=== PATIENT | female | born 1950 | race African-American/Black ===

== ENCOUNTER 2019-10-13 21:16 | Inpatient (IN) | payer OTHER, BC ==
[2019-10-13] MEDS ORDERED: LACTATED RINGERS SOLUTION 1000 ML INFUS.BAG IV ONE (22:03)
[2019-10-13] MEDS ORDERED: MAG HYDROX/AL HYDROX/SIMETH 30 ML UNIT-DOSE CUP PO ONE (22:03)
[2019-10-13] MEDS ORDERED: ONDANSETRON *ODT* 4 MG TABLET SL ONE (22:03)
[2019-10-13] MEDS ORDERED: METOCLOPRAMIDE HCL INJECTION 10 MG/2 ML VIAL IVPUSH ONE (22:03)
--- NOTE | 2019-10-13 22:08 | PDOC ---
History of Present Illness - General Chief Complaint: Vomiting/Diarrhea Stated Complaint: VOMITTING Time Seen by Provider: 10/13/19 21:50 History Source: Patient - History of Present Illness Initial Comments: 10/13/19 23:03 Ms. Mckinnon is a 69F w/hx HTN, HLD p/w acute onset n/v/d one hour after eating dinner at 1730. She reports one hour after dinner noting nausea, 6x nbnb vomiting, 6x non-bloody diarrhea, and nausea. She reports mild chest pain that began after vomiting, non-radiating, Past History - Past Medical History Allergies/Adverse Reactions: Allergies Allergy/AdvReac Type Severity Reaction Status Date / Time No Known Allergies Allergy Verified 10/13/19 21:21 COPD: No HTN: Yes - Psycho Social/Smoking Cessation Hx Smoking History: Never smoked *Physical Exam - Vital Signs Last Vital Signs Temp Pulse Resp BP Pulse Ox 97.4 F L 97 H 18 151/71 97 10/13/19 21:16 10/13/19 21:16 10/13/19 21:16 10/13/19 21:16 10/13/19 21:16 ED Treatment Course - LABORATORY CBC & Chemistry Diagram: 10/13/19 22:20 10/13/19 22:20
[2019-10-13] MEDS ORDERED: METOCLOPRAMIDE HCL INJECTION 10 MG/2 ML VIAL ONE (22:27)
[2019-10-13] MEDS ORDERED: MAG HYDROX/AL HYDROX/SIMETH 30 ML UNIT-DOSE CUP ONE (22:27)
[2019-10-13 22:29] LABS: BASO % 0.2 % (0-2.0); EOS % 0.3 % (0-4.5); HEMATOCRIT 40.7 % (32.4-45.2); HEMOGLOBIN 13.6 GM/dL (10.7-15.3); LYMPH % 6.4 % (8-40); MCH 28.9 pg (25.7-33.7); MCHC 33.3 g/dl (32.0-36.0); MEAN CELL VOLUME 86.5 fl (80-96); MEAN PLT VOLUME 9.4 fl (7.5-11.1); MONO % 5.9 % (3.8-10.2); NEUT % 87.2 % (42.8-82.8); PLATELET COUNT 329 K/MM3 (134-434); RDW 13.5 % (11.6-15.6); WHITE BLOOD COUNT 20.9 K/mm3 (4.0-10.0)
[2019-10-13 23:01] LABS: BLOOD UREA NITROGEN 26.1 mg/dL (7-18); CALCIUM 9.8 mg/dL (8.5-10.1); CREATININE 1.2 mg/dL (0.55-1.3); PLATELET ESTIMATE NORMAL; POTASSIUM 3.6 mmol/L (3.5-5.1); TOT PROT 7.4 g/dl (6.4-8.2)
--- NOTE | 2019-10-13 23:03 | PDOC ---
*Physical Exam - Vital Signs Last Vital Signs Temp Pulse Resp BP Pulse Ox 97.4 F L 97 H 18 151/71 97 10/13/19 21:16 10/13/19 21:16 10/13/19 21:16 10/13/19 21:16 10/13/19 21:16 ED Treatment Course - LABORATORY CBC & Chemistry Diagram: 10/13/19 22:20 10/13/19 22:20 - ADDITIONAL ORDERS Additional order review: 10/13/19 22:20 RBC 4.70 MCV 86.5 MCHC 33.3 RDW 13.5 MPV 9.4 Neutrophils % 87.2 H D Lymphocytes % 6.4 L D Monocytes % 5.9 D Eosinophils % 0.3 D Basophils % 0.2 - Medications Given in the ED: ED Medications Discontinued Medications Generic Name Dose Route Start Last Admin Trade Name Santosq PRN Reason Stop Dose Admin Al Hydroxide/Mg Hydroxide 30 ml 10/13/19 22:03 10/13/19 22:31 Mylanta Oral Suspension - PO 10/13/19 22:04 30 ml ONCE ONE Administration Lactated Ringer's 1,000 ml 10/13/19 22:03 10/13/19 22:25 Lactated Ringers Solution IV 10/13/19 22:04 1,000 ml ONCE ONE Administration Metoclopramide HCl 10 mg 10/13/19 22:03 10/13/19 22:31 Reglan Injection - IVPUSH 10/13/19 22:04 10 mg ONCE ONE Administration Ondansetron HCl 8 mg 10/13/19 22:03 10/13/19 22:26 Zofran Odt - SL 10/13/19 22:04 Not Given ONCE ONE Medical Decision Making - Medical Decision Making 10/13/19 22:59 Patient seen as pre-attending with Dr. Cooper (PGY-1) and Dr. Malhotra (Attending) 69 y/o female with acute onset of NBNB emesis and diarrhea approximately 2 hours prior to arrival Symptoms began shortly after eating nicol[place] fish for dinner Endorses some chest tightness, no shortness of breath, no wheezing. Does not c/o abdominal pain, but has epigastic TTP, bedside U/S shows cholelith , (+) sonographic Alarcon's- has known h/o gallstones medically managed W/u for bilary colic, gastroenteritis, r/o ACS, pancreatitis. Less likely cigaterra/scromboid given clinical presentation. 10/14/19 00:01 Leukocytosis (20.9) LFTS, Alk Phos wnL however patient has signs of acute christine on bedside U/S Will admit for further evaluation Case d/w patient's PMD Dr. Ellis, patient admitted to med/surg Discharge - Discharge Information Problems reviewed: Yes Clinical Impression/Diagnosis: Cholecystitis Condition: Fair - Admission Yes - Follow up/Referral Referrals: Amanda Ellis MD [Primary Care Provider] - - Patient Discharge Instructions - Post Discharge Activity
[2019-10-13] MEDS ORDERED: PIPERACILLIN/TAZOB 3.375 GM 3.375 GM in DEXTROSE 5%-WATER - 50 ML IVPB ONE (23:27)
[2019-10-13] MEDS ORDERED: PIPERACILLIN/TAZOB 3.375 GM 3.375 GM/50 ML BAG IVPB ONE (23:41)
--- NOTE | 2019-10-14 00:24 | PDOC ---
Attending Attestation - Resident Resident Name: Garrison Cooper - ED Attending Attestation I have performed the following: I have examined & evaluated the patient, The case was reviewed & discussed with the resident, I agree w/resident's findings & plan - HPI HPI: 10/14/19 00:18 Pt went to [facility]. She bought nicolás fish and fries and coleslaw and brought it home to eat. Pt states that her ate the food and is fine. She ate her food and within 1 hr she began to feel stomach upset followed by vomiting and diarrhea. 5 episodes of diarrhea and multiple episode of vomtiing. Pt has a hx of gallstones that are being medically managed. Pt has PMD Caleb - Physicial Exam PE: 10/14/19 00:22 Normal exam; RUQ tender minimally; epigastric more tender No flank pain and no diffuse abd pain; however + diffuse gas and increased Bowel sounds. Pt has no rashes - Medical Decision Making 10/14/19 00:23 labs demonstrate WBC 20; chem normal; LFTs normal sono official report pending - however pt has 2 large GB stones. 10/14/19 00:40 sono still pending; pt will be admitted for hydration and for GI eval; pt admitted to her PMD; he is aware. 10/14/19 02:08 Patient Name: GROVER BELL THIS IS A PRELIMINARY REPORT FROM [facility]AGING [facility] ENTRY CLERK EXAM: Right upper quadrant ultrasound IMAGES: 54 DATE OF EXAM: 2019-10-13 23:23:04 REASON FOR EXAM: Right upper quadrant pain. COMPARISON: None. FINDINGS: Cholelithiasis. No sonographic evidence for acute cholecystitis. No evidence of biliary obstruction. Common bile duct normal in diameter for patient's age at 6.3 mm. Limited evaluation of the pancreatic head and body is grossly unremarkable. The liver is unremarkable and without enlargement. The right kidney is within normal limits without hydronephrosis.
[2019-10-14] MEDS ORDERED: ONDANSETRON 4 MG/2 ML VIAL IVPUSH PRN (08:27)
[2019-10-14] MEDS: VALSARTAN 160 MG TABLET (UD) PO SCH (09:29)
[2019-10-14] MEDS: CEFTRIAXONE 1 GM in DEXTROSE 5%-WATER - 50 ML IVPB SCH (09:29)
[2019-10-14] MEDS: PANTOPRAZOLE SODIUM 40 MG VIAL IVPUSH SCH (09:29)
[2019-10-14] MEDS: SODIUM CHLORIDE 1,000 ML IV SCH (09:29)
[2019-10-14 12:22] VITALS: BMI 32.3
--- NOTE | 2019-10-14 15:03 | CON.ID ---
Consult - History of Present Illness History of Present Illness: 69 y.o. female with PMH of HTN, HLD, and cholelithiasis presented to the ER yesterday for sudden onset of n/v/d in the afternoon. Reports multiple episodes of non-bloody vomiting and loose BMs. She had some generalized abd cramping but no pain and has been afebrile. Pt states she had similar episode a few months ago that lasted a few hours and resolved. In july she was found to have gallstones on US as an outpt for c/o mild RUQ discomfort but without signs of acute cholecystitis/obstruction. Denies recent sick contacts, travel, or antibiotic use. States she went to [place] and had some food there but other family members did not become ill. In the ER she was noted to have leukocytosis (wbc >20K) and mild tachycardia but was afebrile with stable vitals. US Abd confirmed presence of gallstones but without findings suggestive of acute cholecystitis. LFTs are normal. Today she has had no episodes of vomiting or diarrhea and denies nausea. Diet was advanced to liquids and has tolerated lunch. She states she feels better and has no other complaints. - History Source History Provided By: Patient Limitations to Obtaining History: No Limitations - Past Medical History Cardio/Vascular: Yes: HTN, Hyperlipdemia Gastrointestinal: Yes: Other (+gallstones) ...: No - Alcohol/Substance Use Hx Alcohol Use: No - Smoking History Smoking history: Never smoked Have you smoked in the past 12 months: No Home Medications - Allergies Allergies/Adverse Reactions: Allergies Allergy/AdvReac Type Severity Reaction Status Date / Time No Known Allergies Allergy Verified 10/13/19 21:21 - Home Medications Home Medications: Ambulatory Orders Candesartan Cilexetil [Atacand -] 16 mg PO BID 10/14/19 Hydrochlorothiazide 25 mg PO DAILY 10/14/19 Family Medical History Family Hx Cancer: Father ("bone cancer") Review of Systems - Review of Systems Constitutional: reports: No Symptoms. denies: Chills, Diaphoresis, Fever, Lethargy, Loss of Appetite, Malaise, Night Sweats, Unintentional Wgt. Loss, Weakness, Other Eyes: reports: No Symptoms. denies: Blind Spots, Blurred Vision, Double Vision , Eye Pain, Floaters, Photophobia, Recent Change in Vision, Other HENT: reports: No Symptoms. denies: Difficult Swallowing, Ear Discharge, Ear Pain, Epistaxis, Gingival Bleeding, Hearing Loss, Mouth Swelling, Nasal Congestion, Ocular Prosthesis, Throat Pain, Toothache, Ringing in Ears, Other Neck: reports: No Symptoms. denies: Decreased ROM, Lumps, Pain on Movement, Stiffness, Swollen Glands, Tenderness, Other Cardiovascular: reports: No Symptoms. denies: Chest Pain, Edema, Palpitations, Shortness of Breath, Other Respiratory: reports: No Symptoms. denies: Cough, Exercise Intolerance, Hemoptysis, Orthopnea, PND, Snoring, SOB, SOB on Exertion, Wheezing, Other Gastrointestinal: reports: No Symptoms. denies: Abdominal Pain, Bloating, Constipation, Diarrhea, Dysphagia, Indigestion, Melena, Nausea, Rectal Bleeding , Vomiting, Vomiting Blood, Other Genitourinary: reports: No Symptoms. denies: Burning, Discharge, Dysuria, Flank Pain, Frequency, Hematuria, Incontinence, Lesions, Menses, Pain, Testicular Mass, Testicular Pain, Testicular Swelling, Urgency, Vaginal Bleeding , Other Breasts: reports: No Symptoms Reported. denies: See HPI, Breast Implants, Discharge from Nipple, Lumps, Pain, Skin Changes, Other Musculoskeletal: reports: No Symptoms. denies: Back Pain, Crepitus, Decreased ROM, Extremity Pain, Joint Pain, Joint Swelling, Muscle Pain, Muscle Cramps, Muscle Weakness, Other Integumentary: reports: No Symptoms. denies: Blister, Bruising, Change in Color , Eczema, Erythema, Incision, Lesions, Lump, Pallor, Pruritis, Rash, Wound, Other Neurological: reports: No Symptoms. denies: Change in LOC, Change in Speech, Confusion, Dizziness, Headache, Incoordination, Numbness, Parasthesia, Pre- Existing Deficit, Seizure, Syncope, Tremors, Unsteady Gait, Weakness, Other Endocrine: reports: No Symptoms. denies: Excessive Sweating, Flushing, Increased Hunger, Increased Thirst, Intolerance to Cold, Intolerance to Heat, Unexplained Weight Gain, Unexplained Weight Loss, Other Hematology/Lymphatic: reports: No Symptoms. denies: Easily Bruised, Excessive Bleeding, Swollen Glands, Other Psychiatric: reports: No Symptoms. denies: Altered Sleep Pattern, Anxiety, Depression, Hallucinations, Panic, Paranoia, Suicidal, Other Physical Exam Vital Signs: Vital Signs Temperature 98.6 F 10/14/19 11:55 Pulse Rate 73 10/14/19 11:55 Respiratory Rate 18 10/14/19 12:32 Blood Pressure 134/72 10/14/19 11:55 O2 Sat by Pulse Oximetry (%) 96 10/14/19 12:32 Constitutional: Yes: Well Nourished, No Distress, Calm Eyes: Yes: Conjunctiva Clear, EOM Intact HENT: Yes: Atraumatic, Normocephalic Neck: Yes: Supple Cardiovascular: Yes: Regular Rate and Rhythm Respiratory: Yes: CTA Bilaterally Gastrointestinal: Yes: Normal Bowel Sounds, Soft Renal/: Yes: WNL Musculoskeletal: Yes: WNL Extremities: Yes: WNL Edema: No Peripheral Pulses WNL: Yes Integumentary: Yes: WNL Neurological: Yes: Alert, Oriented Labs: CBC, BMP 10/13/19 22:20 10/13/19 22:20 Imaging - Results Ultrasound: Report Reviewed Assessment/Plan 69 y.o. female with PMH of HTN, HLD, and cholelithiasis presented to the ER yesterday for sudden onset of n/v/d in the afternoon. Reports multiple episodes of non-bloody vomiting and loose BMs with nausea. U/S + gallstones without findings suggestive of acute cholecystis/obstruction/biliary dilatation Likely gastroenteritis Leukocytosis Cholelithiasis HTN HLD -- vomiting/diarrhea resolved, no abd pain, remains afebrile/vitals stable, LFTs normal -- repeat cbc ordered -- pt advanced to liquid diet, tolerated so far -- monitor wbc trend -- on Ceftriaxone/Flagyl - d/c antibiotics if tolerates regular diet and continues to improve
[2019-10-14 15:24] LABS: BASO % 0.2 % (0-2.0); EOS % 0.5 % (0-4.5); HEMATOCRIT 36.5 % (32.4-45.2); HEMOGLOBIN 11.9 GM/dL (10.7-15.3); LYMPH % 26.9 % (8-40); MCHC 32.7 g/dl (32.0-36.0); MEAN CELL VOLUME 85.8 fl (80-96); MEAN PLT VOLUME 9.2 fl (7.5-11.1); MONO % 4.2 % (3.8-10.2); NEUT % 68.2 % (42.8-82.8); PLATELET COUNT 311 K/MM3 (134-434); RBC 4.26 M/mm3 (3.60-5.2); RDW 13.6 % (11.6-15.6); WHITE BLOOD COUNT 12.2 K/mm3 (4.0-10.0)
[2019-10-14 15:47] LABS: BLOOD UREA NITROGEN 22.7 mg/dL (7-18); CALCIUM 9.1 mg/dL (8.5-10.1); CREATININE 1.2 mg/dL (0.55-1.3); POTASSIUM 3.5 mmol/L (3.5-5.1)
--- NOTE | 2019-10-14 17:44 | HP ---
Admitting History and Physical - Primary Care Physician PCP: Amanda Ellis - Admission Chief Complaint: Abdomen pain with nausea vomiting diarrhea History of Present Illness: 69 y.o. female with PMH of HTN, HLD, and cholelithiasis presented to the ER yesterday for sudden onset of n/v/d in the afternoon. Reports multiple episodes of non-bloody vomiting and loose BMs. She had some generalized abd cramping but no pain and has been afebrile. Pt states she had similar episode a few months ago that lasted a few hours and resolved. In july she was found to have gallstones on US as an outpt for c/o mild RUQ discomfort but without signs of acute cholecystitis/obstruction. Denies recent sick contacts, travel, or antibiotic use. States she went to [place] and had some food there but other family members did not become ill. In the ER she was noted to have leukocytosis (wbc >20K) and mild tachycardia but was afebrile with stable vitals. US Abd confirmed presence of gallstones but without findings suggestive of acute cholecystitis. LFTs are normal. Today she has had no episodes of vomiting or diarrhea and denies nausea. Diet was advanced to liquids and has tolerated lunch. She states she feels better and has no other complaints. - Past Medical History Cardiovascular: Yes: HTN, Hyperlipdemia Gastrointestinal: Yes: Other (+gallstones) ...: No - Past Surgical History Past Surgical History: Yes: Hysterectomy - Smoking History Smoking history: Never smoked Have you smoked in the past 12 months: No - Alcohol/Substance Use Hx Alcohol Use: No - Social History ADL: Independent History of Recent Travel: No Home Medications - Allergies Allergies/Adverse Reactions: Allergies Allergy/AdvReac Type Severity Reaction Status Date / Time No Known Allergies Allergy Verified 10/13/19 21:21 - Home Medications Home Medications: Ambulatory Orders Candesartan Cilexetil [Atacand -] 16 mg PO BID 10/14/19 Hydrochlorothiazide 25 mg PO DAILY 10/14/19 Family Medical History Family Hx Cancer: Father Review of Systems - Review of Systems Constitutional: reports: Chills, Fever. denies: Diaphoresis Eyes: denies: Blind Spots, Blurred Vision, Double Vision, Eye Pain HENT: denies: Difficult Swallowing, Ear Discharge, Ear Pain, Epistaxis Neck: denies: Decreased ROM, Lumps, Pain on Movement, Stiffness Cardiovascular: denies: Chest Pain, Edema, Palpitations, Shortness of Breath Respiratory: denies: Exercise Intolerance, Hemoptysis, Orthopnea Gastrointestinal: reports: Abdominal Pain, Diarrhea, Nausea, Vomiting. denies: Bloating Genitourinary: denies: Burning, Discharge, Dysuria, Flank Pain Breasts: reports: See HPI Musculoskeletal: denies: Back Pain, Crepitus, Decreased ROM Physical Examination Vital Signs: Vital Signs Temperature 98.6 F 10/14/19 15:00 Pulse Rate 73 10/14/19 15:00 Respiratory Rate 18 10/14/19 15:00 Blood Pressure 130/73 10/14/19 15:00 O2 Sat by Pulse Oximetry (%) 96 10/14/19 12:32 General: Elderly woman, comfortable, not in distress HEENT; mucous membranes moist, no anemia, no jaundice, PERRLA, no nystagmus Neck: No JVD, supple, no bruit, thyroid palpably normal, normal carotid pulsations. Chest: Nontender, clear to auscultation bilaterally CVS: S1-S2 regular no murmur/gallop/rub Abdomen: Nondistended, soft, bowel sounds present. Extremities: No edema., No calf tenderness, pulses present OPERATIONS PROFESSIONAL: AO X3 , no gross motor sensory deficit Labs: CBC, BMP 10/14/19 15:05 10/14/19 15:05 Imaging - Results Ultrasound: Report Reviewed (Cholelithiasis no clinical sign of acute cholecystitis.) EKG: Report Reviewed (No acute ST-T change) Problem List - Problems (1) Acute gastroenteritis Assessment/Plan: Most likely due to food poisoning, although patient has cholelithiasis but no clinical sign of acute cholecystitis will continue IV hydration, will VID patient has normal liver function test no abdominal sign of tenderness will start clear liquid advance as tolerated., IV PPI, IV Zofran as needed continue IV hydration Problems reviewed: Yes Code(s): K52.9 - NONINFECTIVE GASTROENTERITIS AND COLITIS, UNSPECIFIED (2) Hypertension Assessment/Plan: Continue home medications Problems reviewed: Yes Code(s): I10 - ESSENTIAL (PRIMARY) HYPERTENSION (3) Elevated WBC count Assessment/Plan: Most likely reactive trending down. Follow-up with CBC in the morning Problems reviewed: Yes Code(s): D72.829 - ELEVATED WHITE BLOOD CELL COUNT, UNSPECIFIED
[2019-10-15] MEDS: SODIUM CHLORIDE 1,000 ML IV SCH ×2 (01:26→09:55)
[2019-10-15 08:56] LABS: BASO % 0.3 % (0-2.0); EOS % 2.4 % (0-4.5); HEMATOCRIT 35.5 % (32.4-45.2); HEMOGLOBIN 11.8 GM/dL (10.7-15.3); LYMPH % 51.3 % (8-40); MCH 28.8 pg (25.7-33.7); MCHC 33.3 g/dl (32.0-36.0); MEAN CELL VOLUME 86.3 fl (80-96); MEAN PLT VOLUME 9.7 fl (7.5-11.1); MONO % 5.6 % (3.8-10.2); NEUT % 40.4 % (42.8-82.8); PLATELET COUNT 298 K/MM3 (134-434); RBC 4.11 M/mm3 (3.60-5.2); RDW 13.7 % (11.6-15.6); WHITE BLOOD COUNT 7.9 K/mm3 (4.0-10.0)
[2019-10-15 09:07] VITALS: BP 150/68; PULSE 75; TEMP 98.2
--- NOTE | 2019-10-15 09:09 | DS ---
Physical Examination Vital Signs: Vital Signs Temperature 98.8 F 10/15/19 06:41 Pulse Rate 74 10/15/19 06:41 Respiratory Rate 18 10/15/19 06:41 Blood Pressure 143/73 10/15/19 06:41 O2 Sat by Pulse Oximetry (%) 99 10/14/19 22:00 Findings/Remarks: Admitted with diarrhea and vomiting Itiology not clear possible viral/bacterial Resolved ,labs ok,DC home if she tolerates regular food Constitutional: Yes: No Distress, Pallor HENT: Yes: WNL Neck: Yes: WNL Cardiovascular: Yes: WNL Respiratory: Yes: WNL Gastrointestinal: Yes: WNL ...Rectal Exam: Yes: Deferred Renal/: Yes: WNL Breast(s): Yes: WNL Musculoskeletal: Yes: WNL Extremities: Yes: WNL Edema: No Neurological: Yes: Alert ...Motor Strength: WNL Psychiatric: Yes: Alert Labs: CBC, BMP 10/15/19 07:34 Discharge Summary Problems reviewed: Yes Reason For Visit: ACUTE CHOLECYSTITIS Current Active Problems Acute gastroenteritis (Acute) Cholecystitis (Acute) Elevated WBC count (Acute) Hypertension (Acute) Condition: Fair - Instructions Referrals: Amanda Ellis MD [Primary Care Provider] - - Home Medications Comprehensive Discharge Medication List: Ambulatory Orders Candesartan Cilexetil [Atacand -] 16 mg PO BID 10/14/19 Hydrochlorothiazide 25 mg PO DAILY 10/14/19 Latanoprost/Pf [Latanoprost 0.005% Eye Drop] 7.5 ml OP HS 10/14/19
[2019-10-15 09:28] LABS: ALBUMIN 3.4 g/dl (3.4-5.0); BILIRUBIN,TOTAL 1.6 mg/dL (0.2-1); BLOOD UREA NITROGEN 16.3 mg/dL (7-18); CALCIUM 9.3 mg/dL (8.5-10.1); CREATININE 1.1 mg/dL (0.55-1.3); POTASSIUM 3.9 mmol/L (3.5-5.1); TOT PROT 6.3 g/dl (6.4-8.2)
--- NOTE | 2019-10-15 09:30 | PN ---
Progress Note, Physician Chief Complaint: Feels little better - Current Medication List Current Medications: Active Medications Sodium Chloride (Normal Saline -) 1,000 mls @ 100 mls/hr IV ASDIR [facility] Last Admin: 10/15/19 01:26 Dose: 100 mls/hr Ceftriaxone Sodium 1 gm/ (Dextrose) 50 mls @ 100 mls/hr IVPB DAILY [facility] Last Admin: 10/14/19 09:29 Dose: 100 mls/hr Metronidazole (Flagyl 500mg Premixed Ivpb -) 500 mg in 100 mls @ 100 mls/hr IVPB Q8H-IV [facility] Last Admin: 10/15/19 01:27 Dose: 100 mls/hr Ondansetron HCl (Zofran Injection) 4 mg IVPUSH Q6H PRN PRN Reason: NAUSEA Pantoprazole Sodium (Protonix Iv) 40 mg IVPUSH DAILY [facility] Last Admin: 10/14/19 09:29 Dose: 40 mg Valsartan (Diovan -) 320 mg PO DAILY [facility] Last Admin: 10/14/19 09:29 Dose: 320 mg - Objective Vital Signs: Vital Signs Temperature 98.2 F 10/15/19 09:06 Pulse Rate 75 10/15/19 09:06 Respiratory Rate 18 10/15/19 09:06 Blood Pressure 150/68 10/15/19 09:06 O2 Sat by Pulse Oximetry (%) 99 10/14/19 22:00 Constitutional: Yes: Mild Distress Eyes: Yes: WNL HENT: Yes: WNL Neck: Yes: WNL Cardiovascular: Yes: WNL Respiratory: Yes: On Nasal O2 Gastrointestinal: Yes: WNL ...Rectal Exam: Yes: Deferred Genitourinary: Yes: WNL Breast(s): Yes: WNL Musculoskeletal: Yes: Muscle Weakness Extremities: Yes: WNL Edema: No Peripheral Pulses WNL: Yes Integumentary: Yes: WNL Neurological: Yes: Alert Psychiatric: Yes: Alert Labs: CBC, BMP 10/15/19 07:34 Assessment/Plan continue same trt
--- NOTE | 2019-10-15 09:45 | EKG ---
Test Reason : Blood Pressure : / mmHG Vent. Rate : 087 BPM Atrial Rate : 087 BPM P-R Int : 142 ms QRS Dur : 074 ms QT Int : 396 ms P-R-T Axes : 061 019 065 degrees QTc Int : 476 ms SINUS RHYTHM POSSIBLE LEFT ATRIAL ENLARGEMENT BORDERLINE ECG WHEN COMPARED WITH ECG OF 03-AUG-2011 13:39, No significant changes Confirmed by Hardik Nolan ([id number]) on 10/15/2019 9:44:58 AM Referred By: Confirmed By:Hardik Nolan
[2019-10-15] MEDS ORDERED: DEXTROSE 5%-WATER - 50 ML IVPB ONE (09:50)
[2019-10-15] MEDS ORDERED: cefTRIAXone SODIUM 1 GM VIAL ONE (09:50)
[2019-10-15] MEDS: CEFTRIAXONE 1 GM in DEXTROSE 5%-WATER - 50 ML IVPB SCH (09:56)
[2019-10-15] MEDS: PANTOPRAZOLE SODIUM 40 MG VIAL IVPUSH SCH (09:58)
[2019-10-15] MEDS: VALSARTAN 160 MG TABLET (UD) PO SCH (09:58)
--- NOTE | 2019-10-15 12:00 | PN ---
Progress Note, Physician History of Present Illness: stable feels much better - Current Medication List Current Medications: Active Medications Sodium Chloride (Normal Saline -) 1,000 mls @ 100 mls/hr IV ASDIR [facility] Last Admin: 10/15/19 09:55 Dose: 100 mls/hr Ceftriaxone Sodium 1 gm/ (Dextrose) 50 mls @ 100 mls/hr IVPB DAILY [facility] Last Admin: 10/15/19 09:56 Dose: 100 mls/hr Metronidazole (Flagyl 500mg Premixed Ivpb -) 500 mg in 100 mls @ 100 mls/hr IVPB Q8H-IV [facility] Last Admin: 10/15/19 09:57 Dose: 100 mls/hr Ondansetron HCl (Zofran Injection) 4 mg IVPUSH Q6H PRN PRN Reason: NAUSEA Pantoprazole Sodium (Protonix Iv) 40 mg IVPUSH DAILY [facility] Last Admin: 10/15/19 09:58 Dose: 40 mg Valsartan (Diovan -) 320 mg PO DAILY [facility] Last Admin: 10/15/19 09:58 Dose: 320 mg - Objective Vital Signs: Vital Signs Temperature 98.2 F 10/15/19 09:06 Pulse Rate 75 10/15/19 09:06 Respiratory Rate 18 10/15/19 09:06 Blood Pressure 150/68 10/15/19 09:06 O2 Sat by Pulse Oximetry (%) 99 10/14/19 22:00 Constitutional: Yes: No Distress, Calm Cardiovascular: Yes: S1, S2 Respiratory: Yes: Regular, CTA Bilaterally Gastrointestinal: Yes: Normal Bowel Sounds, Soft Musculoskeletal: Yes: WNL Extremities: Yes: WNL Neurological: Yes: Alert, Oriented Psychiatric: Yes: Alert, Oriented Labs: CBC, BMP 10/15/19 07:34 10/15/19 07:34 Assessment/Plan 69 y.o. female with PMH of HTN, HLD, and cholelithiasis presented to the ER yesterday for sudden onset of n/v/d in the afternoon. Reports multiple episodes of non-bloody vomiting and loose BMs with nausea. U/S + gallstones without findings suggestive of acute cholecystis/obstruction/biliary dilatation Likely gastroenteritis Leukocytosis Cholelithiasis HTN HLD continue current mgmt rest as per the team
== END 2019-10-15 13:38 | disposition home or self-care (01) | DRG 446 ==
LOC: JER 21:16 → JERBED 10-14 → J5S 10-14 09:59
PROVIDERS: ADMIT Internal Medicine; ATTEND Internal Medicine
DX: K80.20 Calculus of gallbladder without cholecystitis without obstruction (principal); K52.9 Noninfective gastroenteritis and colitis, unspecified; I10 Essential (primary) hypertension; E78.5 Hyperlipidemia, unspecified; D72.829 Elevated white blood cell count, unspecified
CPT/HCPCS: 36415; 71045-TC-FY; 76705-TC; 80048; 80053; 82550; 82553; 83690; 84484; 85025; 93005; 93010; 99285-25; J7030

== ENCOUNTER → 2023-10-27 | Day surgery (SDC) | payer OTHER | END | disposition home or self-care (01) | LOC: FMAMMOTONE 12:33 | PROVIDERS: ATTEND Internal Medicine | PROC: 0HBU3ZX Excision of Left Breast, Percutaneous Approach, Diagnostic (ICD-10-PCS; principal; 2023-10-27) | DX: N60.31 Fibrosclerosis of right breast (principal); N64.89 Other specified disorders of breast; R92.1 Mammographic calcification found on diagnostic imaging of breast | CPT/HCPCS: 19081; 76098-TC-FY; 87899; 88305-TC; A4648 ==

== ENCOUNTER 2024-04-15 18:49 | Inpatient (IN) | payer OTHER ==
[2024-04-15] MEDS ORDERED: ACETAMINOPHEN INJECTION 100 ML ONE (19:32)
[2024-04-15] MEDS: SODIUM CHLORIDE 0.9% 500 ML INFUS.BAG IV ONE (19:49)
[2024-04-15] MEDS: ACETAMINOPHEN 1000 MG/100 ML BAG IVPB ONE (19:50)
[2024-04-15 19:55] LABS: BASO % 0.6 % (0-2.0); EOS % 3.7 % (0-4.5); HEMATOCRIT 33.7 % (32.4-45.2); HEMOGLOBIN 11.3 GM/dL (10.7-15.3); LYMPH % 52.1 % (8-40); MCH 28.4 pg (25.7-33.7); MCHC 33.4 g/dl (32.0-36.0); MEAN CELL VOLUME 85.2 fl (80-96); MEAN PLT VOLUME 8.9 fl (7.5-11.1); MONO % 5.7 % (3.8-10.2); NEUT % 37.9 % (42.8-82.8); PLATELET COUNT 299 10^3/uL (134-434); RBC 3.96 M/mm3 (3.60-5.2); RDW 13.2 % (11.6-15.6); WHITE BLOOD COUNT 9.6 K/mm3 (4.0-10.0)
[2024-04-15] MEDS ORDERED: MECLIZINE HCL 25 MG TABLET (FP) ONE (19:58)
[2024-04-15 20:01] LABS: INR 0.95 (0.83-1.09); PROTHROMBIN TIME (PATIENT) 10.9 SEC (9.7-13.0)
[2024-04-15] MEDS: MECLIZINE HCL 25 MG TABLET (FP) PO ONE (20:03)
[2024-04-15 20:04] LABS: ACTIVATED PTT 33.4 SECONDS (25.2-36.5)
[2024-04-15 20:17] LABS: POTASSIUM 4.2 mmol/L (3.5-5.1)
[2024-04-15 20:19] LABS: ALBUMIN 3.7 g/dl (3.4-5.0); CALCIUM 9.3 mg/dL (8.5-10.1)
[2024-04-15 20:20] LABS: BLOOD UREA NITROGEN 40.7 mg/dL (7-18)
[2024-04-15 20:23] LABS: CREATININE 1.8 mg/dL (0.55-1.3)
[2024-04-15 20:24] LABS: BILIRUBIN,TOTAL 1.3 mg/dL (0.2-1); TOT PROT 7.5 g/dl (6.4-8.2)
[2024-04-15 21:25] LABS: HIV INTERPRETATION NEGATIVE (NEGATIVE)
[2024-04-15] MEDS: LACTATED RINGERS SOLUTION 1,000 ML/1,000 ML INFUS.BAG IV SCH (22:30)
[2024-04-16] MEDS ORDERED: DOCUSATE SODIUM 100 MG CAPSULE (FP) PO PRN (00:27)
[2024-04-16] MEDS ORDERED: ACETAMINOPHEN 325 MG TABLET (FP) PO PRN (00:27)
[2024-04-16] MEDS: SODIUM CHLORIDE 1,000 ML IV SCH (01:20)
[2024-04-16 07:05] LABS: POTASSIUM 4.2 mmol/L (3.5-5.1)
[2024-04-16 07:06] LABS: BASO % 0.6 % (0-2.0); EOS % 4.1 % (0-4.5); HEMATOCRIT 33.1 % (32.4-45.2); HEMOGLOBIN 11.2 GM/dL (10.7-15.3); LYMPH % 49.8 % (8-40); MCH 28.6 pg (25.7-33.7); MCHC 33.7 g/dl (32.0-36.0); MEAN CELL VOLUME 84.8 fl (80-96); MEAN PLT VOLUME 9.4 fl (7.5-11.1); MONO % 5.8 % (3.8-10.2); NEUT % 39.7 % (42.8-82.8); PLATELET COUNT 291 10^3/uL (134-434); RDW 13.4 % (11.6-15.6); WHITE BLOOD COUNT 7.1 K/mm3 (4.0-10.0)
[2024-04-16 07:07] LABS: CALCIUM 9.4 mg/dL (8.5-10.1)
[2024-04-16 07:08] LABS: BLOOD UREA NITROGEN 33.2 mg/dL (7-18); MAGNESIUM 2.8 mg/dL (1.8-2.4)
[2024-04-16 07:11] LABS: CREATININE 1.4 mg/dL (0.55-1.3)
[2024-04-16 07:16] LABS: N-TERMINAL BNP 69.9 pg/ml (5-450)
[2024-04-16 13:22] LABS: EPI CELLS 5 /uL (0-25.1); HYALINE CASTS 0 /uL (0-3.1); URINE APPEARANCE CLEAR; URINE BACTERIA 53 /uL (0-1359); URINE BILIRUBIN NEGATIVE (NEGATIVE); URINE COLOR YELLOW; URINE GLUCOSE (UA) NEGATIVE (NEGATIVE); URINE KETONE NEGATIVE (NEGATIVE); URINE LEUK ESTERASE TRACE (NEGATIVE); URINE NITRITE NEGATIVE (NEGATIVE); URINE PROTEIN NEGATIVE (NEGATIVE); URINE RBC 4 /uL (0-23.9); URINE UROBILINOGEN 0.2 mg/dL (0.2-1.0); URINE WBC 15 /uL (0-25.8)
[2024-04-16] MEDS: LACTATED RINGERS SOLUTION 1,000 ML/1,000 ML INFUS.BAG IV SCH (15:01)
[2024-04-16 21:57] VITALS: BMI 30.7
[2024-04-17] MEDS ORDERED: REGADENOSON 0.4 MG/5 ML PRE-FILLED SYRINGE IVPUSH ONE (09:07)
[2024-04-17] MEDS: REGADENOSON 0.4 MG/5 ML PRE-FILLED SYRINGE IVPUSH ONE (10:30)
[2024-04-17 17:23] LABS: POTASSIUM 4.2 mmol/L (3.5-5.1)
[2024-04-17 17:26] LABS: CALCIUM 9.6 mg/dL (8.5-10.1)
[2024-04-17 17:27] LABS: BLOOD UREA NITROGEN 24.9 mg/dL (7-18)
[2024-04-17 17:30] LABS: CREATININE 1.4 mg/dL (0.55-1.3)
[2024-04-17 18:08] VITALS: BP 111/69; RESP 16; TEMP 98.1
[2024-04-17 18:16] VITALS: PULSE 65
[2024-04-18] MEDS ORDERED: TAMSULOSIN HCL 0.4 MG CAP PO SCH (08:30)
== END 2024-04-17 18:18 | disposition home or self-care (01) | DRG 309 ==
LOC: JER 18:49 → JERBED 23:11 → J4S 04-16 21:10 → OBSVTOIN 04-17 10:12
PROVIDERS: ADMIT Internal Medicine; ATTEND Family Medicine
DX: R00.2 Palpitations (principal); N17.9 Acute kidney failure, unspecified; I12.9 Hypertensive chronic kidney disease with stage 1 through stage 4 chronic kidney disease, or unspecified chronic kidney disease; I35.1 Nonrheumatic aortic (valve) insufficiency; N18.9 Chronic kidney disease, unspecified; Z68.30 Body mass index [BMI] 30.0-30.9, adult; E78.5 Hyperlipidemia, unspecified; R51.9 Headache, unspecified; R79.89 Other specified abnormal findings of blood chemistry; E86.0 Dehydration; R06.09 Other forms of dyspnea; R55 Syncope and collapse; R42 Dizziness and giddiness; R33.9 Retention of urine, unspecified
CPT/HCPCS: 0241U-QW; 36415; 70450-TC; 71045-TC-FY; 76775-TC; 76856-TC; 78452-TC; 80048; 80053; 81003; 82550; 82553; 83735; 83880; 84100; 84443; 84484; 85025; 85610; 85730; 86803; 87086; 87389; 93005; 93010; 93017; 93246; 93306-TC; 93880-TC; 99285-25; A9502; G0378; J0131; J2785